=== PATIENT | male | born 1940 | race African-American/Black ===

== ENCOUNTER 2017-01-24 13:03 | Emergency (ER) | payer MEDICARE, OTHER ==
[~2017-01-24] VITALS: Ht 185.4 cm; Wt 80.0 kg
[2017-01-24] MEDS ORDERED: ONDANSETRON 4MG ODT PO ONE (14:45)
[2017-01-24] MEDS ORDERED: TRAMADOL 50MG TABLET PO ONE (14:45)
[2017-01-24] MEDS ORDERED: KETOROLAC 60MG/2ML VIAL IM ONE (14:45)
[2017-01-24] MEDS ORDERED: HYDROCODONE/ACETAMINOPHEN 5/325MG TABLET PO ONE (20:15)
[2017-01-24 21:06] VITALS: BP 148/85
== END 2017-01-24 21:07 | disposition home or self-care (01) ==
LOC: ER 13:11
DX: S10.93XA Contusion of unspecified part of neck, initial encounter (principal); S70.02XA Contusion of left hip, initial encounter; S09.90XA Unspecified injury of head, initial encounter; M48.06 Spinal stenosis, lumbar region; R20.9 Unspecified disturbances of skin sensation; N40.0 Benign prostatic hyperplasia without lower urinary tract symptoms; V43.52XA Car driver injured in collision with other type car in traffic accident, initial encounter; Y92.488 Other paved roadways as the place of occurrence of the external cause
CPT/HCPCS: 70450; 71010; 72040; 72100; 72192; 96372; 99284; J1885; Q0162

== ENCOUNTER 2017-02-23 14:47 | Inpatient (IN) | payer OTHER, MEDICARE ==
[~2017-02-23] VITALS: Ht 188 cm; Wt 90.7 kg
[2017-02-23 17:49] LABS: BASOPHILS % 0.6 % (0.0-2.0); EOSINOPHILS % 2.7 % (0.0-5.0); HEMATOCRIT. 38.1 % (42.0-52.0); HEMOGLOBIN. 13.1 g/dL (14.0-18.0); LYMPHOCYTES % 32.6 % (20.0-50.0); MEAN CORPUSCULAR HGB CONC 34.3 g/dL (31.0-37.0); MEAN CORPUSCULAR VOLUME 90.3 fL (80.0-94.0); MEAN PLATELET VOLUME 7.4 fl (7.4-10.4); MONOCYTES % 9.9 % (2.0-8.0); NEUTROPHILS % 54.2 % (40.0-76.0); PLATELET 172 x1000/uL (130-400); RED BLOOD CELL COUNT 4.22 mill/uL (4.7-6.1); WHITE BLOOD COUNT 5.5 x1000/uL (4.5-11.0)
[2017-02-23 17:54] LABS: CHLORIDE 104 mEq/L (98-107); INDEX HEMOLYSI 1 (1-3); INDEX ICTERIC 1 (1-4); INDEX LIPEMIC 1 (1-3)
[2017-02-23 17:56] LABS: PROTHROMBIN TIME 10.7 sec
[2017-02-23 17:58] LABS: ALBUMIN 3.4 g/dL (3.4-5.0); ANION GAP 11; CALCIUM 9.1 mg/dL (8.5-10.1); CARBON DIOXIDE 32 mEq/L (21-32); UREA NITROGEN BLOOD 13 mg/dL (7-21)
[2017-02-23 18:03] LABS: ALANINE AMINOTRANSFERASE 38 IU/L (13-61); eGFR > 60 mL/min (>60)
[2017-02-23 23:35] VITALS: BP 153/91
[2017-02-23 23:45] VITALS: BP 153/91
[2017-02-24] MEDS ORDERED: CLONIDINE 0.1MG TABLET PO PRN (01:00)
[2017-02-24] MEDS ORDERED: ONDANSETRON HCL 4MG/2ML VIAL IV PRN (01:00)
[2017-02-24] MEDS ORDERED: ACETAMINOPHEN 325MG TABLET PO PRN (01:00)
[2017-02-24] MEDS ORDERED: HYDROCODONE/ACETAMINOPHEN 5/325MG TABLET PO PRN (01:00)
[2017-02-24] MEDS ORDERED: MAGNESIUM HYDROXIDE 400MG/5ML 30ML UDC PO PRN (01:00)
[2017-02-24] MEDS ORDERED: DIPHENHYDRAMINE 50MG/ML VIAL IV PRN (01:00)
[2017-02-24] MEDS ORDERED: MAGNESIUM/ALUMINUM HYDROXIDE/SIMETHICONE 30ML UDC PO PRN (01:00)
[2017-02-24] MEDS ORDERED: CARISOPRODOL 350 MG TABLET PO PRN (03:15)
[2017-02-24 04:00] VITALS: BP 134/89
[2017-02-24 08:00] VITALS: BP 151/93
[2017-02-24] MEDS: ENOXAPARIN 40MG/0.4ML SYR SUBCUT SCH (09:00)
[2017-02-24] MEDS: DOCUSATE SODIUM 100MG CAPSULE PO SCH ×2 (09:00→17:42)
[2017-02-24 12:00] VITALS: BP 148/94
[2017-02-24] MEDS: SODIUM CHLORIDE 0.9% INJ 3ML FLUSH IVF SCH (13:27)
[2017-02-24 16:00] VITALS: BP 125/83
[2017-02-24 20:00] VITALS: BP 148/96
[2017-02-24] MEDS: NAPROXEN 375MG TABLET PO SCH (20:37)
[2017-02-25] VITALS: BP 126/78
[2017-02-25 04:00] VITALS: BP 146/93
[2017-02-25] MEDS: SODIUM CHLORIDE 0.9% INJ 3ML FLUSH IVF SCH ×2 (06:56→18:33)
[2017-02-25 08:00] VITALS: BP 136/87
[2017-02-25] MEDS: ENOXAPARIN 40MG/0.4ML SYR SUBCUT SCH (09:00)
[2017-02-25] MEDS: DOCUSATE SODIUM 100MG CAPSULE PO SCH ×2 (09:00→18:33)
[2017-02-25] MEDS: NAPROXEN 375MG TABLET PO SCH (09:16)
[2017-02-25 12:00] VITALS: BP 130/87
[2017-02-25 16:00] VITALS: BP 139/87
[2017-02-25 18:42] VITALS: BP 139/87
== END 2017-02-25 19:45 | disposition home health service (06) | DRG 552 ==
LOC: ER 17:25 → 6EST 19:44
PROVIDERS: ADMIT Internal Medicine; ATTEND Internal Medicine
DX: M48.06 Spinal stenosis, lumbar region (principal); I10 Essential (primary) hypertension; M47.9 Spondylosis, unspecified; M48.02 Spinal stenosis, cervical region; M43.16 Spondylolisthesis, lumbar region; M62.830 Muscle spasm of back; R33.9 Retention of urine, unspecified; Z80.9 Family history of malignant neoplasm, unspecified; Z86.73 Personal history of transient ischemic attack (TIA), and cerebral infarction without residual deficits
CPT/HCPCS: 36415; 70551; 72141; 72146; 72148; 80053; 85025; 85610; 93005; 97162; 99285; J1650